=== PATIENT | female | born 2000 | race Caucasian/White ===

== ENCOUNTER 2024-09-15 23:03 | Emergency (ER) | payer BC ==
[~2024-09-15] VITALS: Ht 162.6 cm; Wt 49.9 kg
[2024-09-15] MEDS ORDERED: methylPREDNISolone SOD SUCC 125 MG/2ML VIAL ONE (23:12)
[2024-09-15] MEDS: ALBUTEROL FS 2.5 MG/3 ML VIAL.NEB NEB ONE (23:16)
[2024-09-15] MEDS ORDERED: ALBUTEROL FS 2.5 MG/3 ML VIAL.NEB ONE (23:17)
[2024-09-15] MEDS: methylPREDNISolone SOD SUCC 125 MG/2ML VIAL IV ONE (23:18)
[2024-09-15 23:19] VITALS: O2SAT 97
[2024-09-15 23:34] VITALS: O2SAT 100
[2024-09-16] VITALS: BP 132/84; TEMP 98.8; O2SAT 100
== END 2024-09-16 00:03 | disposition left against medical advice (07) ==
LOC: ER 23:04
DX: J45.909 Unspecified asthma, uncomplicated (principal); R05.8 Other specified cough; F17.200 Nicotine dependence, unspecified, uncomplicated; Z20.822 Contact with and (suspected) exposure to COVID-19
CPT/HCPCS: 99284; 96374; 71045; 87426; 87804 ×2; 94799; 94640; J2919

== ENCOUNTER 2024-09-17 10:48 | Emergency (ER) | payer BC ==
[~2024-09-17] VITALS: Ht 162.6 cm; Wt 49.9 kg
[2024-09-17 12:39] VITALS: BP 128/93; TEMP 98.9; O2SAT 95
== END 2024-09-17 12:40 | disposition home or self-care (01) ==
LOC: ER 10:52
DX: J10.1 Influenza due to other identified influenza virus with other respiratory manifestations (principal); J45.901 Unspecified asthma with (acute) exacerbation; F17.200 Nicotine dependence, unspecified, uncomplicated
CPT/HCPCS: 71045-TC; 84703-TC